=== PATIENT | male | born 1985 ===

== ENCOUNTER 2017-09-12 10:54 | Emergency (ER) | payer SELFPAY ==
--- NOTE | 2017-09-12 12:08 | UC ---
Throat Pain/Nasal Froy HPI - HPI Summary HPI Summary: This is Caroline sethi, documenting for attending Vincent Nieto M.D. Pt is a 32 y/o M who presents to ED c/o painful and swollen throat. Pt reports that his throat has been painful for 3 days, at its worst today. Pain has been intermittent since onset, present with PO intake and swallowing. On triage, pain is not present ranked 0/10. Notes slight rash which he suspects to be poison hazel on the right ankle. Reports that he has not felt ill while experiencing symptoms. Denies fever, abdominal pain. States that he has had what he suspects to be poison hazel on his lips for the last 5 days, which is now resolved, and that he is concerned the poison hazel is in his throat. Works outdoors. - History of Current Complaint Chief Complaint: UCRespiratory Stated Complaint: THROAT PAIN Time Seen by Provider: 09/12/17 12:02 Hx Obtained From: Patient Onset/Duration: Lasting Days - 3 days, Still Present, Worse Since - Today Pain Intensity: 0 Pain Scale Used: 0-10 Numeric Cough: None Associated Signs & Symptoms: Positive: Rash - Right ankle - Allergies/Home Medications Allergies/Adverse Reactions: Allergies Allergy/AdvReac Type Severity Reaction Status Date / Time No Known Allergies Allergy Verified 09/12/17 11:06 Home Medications: Home Medications diPHENhydraMINE PO* [Benadryl PO 25 MG TAB*] 50 mg PO ONCE 09/12/17 [History Confirmed 09/12/17] PMH/Surg Hx/FS Hx/Imm Hx - Additional Past Medical History Additional PMH: NEGATIVE PMHx: DM, HTN, CAD - Surgical History Surgical History: None - Family History Known Family History: Negative: Cardiac Disease, Hypertension, Diabetes - Social History Alcohol Use: None Substance Use Type: None Smoking Status (MU): Current Some Day Smoker Review of Systems Constitutional: Negative Skin: Rash - Right ankle Eyes: Negative ENT: Sore Throat, Other - Swollen throat Respiratory: Negative Cardiovascular: Negative Gastrointestinal: Negative Genitourinary: Negative Motor: Negative Neurovascular: Negative Musculoskeletal: Negative Neurological: Negative Psychological: Negative All Other Systems Reviewed And Are Negative: Yes - Comments Additional Review of Systems Comments: NEGATIVE: Fever, abdominal pain Physical Exam - Summary Physical Exam Summary: General: well-appearing, no pain distress Skin: warm, color reflects adequate perfusion, dry Head: normal Eyes: EOMI, NANETTE ENT: his lips have areas that are bright red, the posterior pharynx has some ulcerations, the oral pharynx is open, the uvula is midline, and there is no peritonsillar abscess Neck: supple, nontender Respiratory: CTA, breath sounds present Cardiovascular: RRR Musculoskeletal: normal, strength/ROM intact Neurological: sensory/motor intact, A&O x3 Psychological: affect/mood appropriate Triage Information Reviewed: Yes Vital Signs: Initial Vital Signs Temp 97.7 F 09/12/17 11:03 Pulse 86 09/12/17 11:03 Resp 12 09/12/17 11:03 BP 160/78 09/12/17 11:03 Pulse Ox 98 09/12/17 11:03 Vital Signs Reviewed: Yes Throat Pain/Nasal Course/Dx - Course Course Of Treatment: CLINICALLY APPEARS TO BE HAND, FOOT AND MOUTH DX. STREP NEGATIVE. F/U PMD; RECHECK SOONER IF WORSE. Assessment/Plan: Medications reviewed. Allergies noted. BP noted and advised to follow up with PCP. - Differential Dx/Diagnosis Provider Diagnoses: HAND FOOT AND MOUTH DISEASE. PHARYNGITIS Discharge - Sign-Out/Discharge Documenting (check all that apply): Patient Departure - Discharge - Discharge Plan Condition: Stable Disposition: HOME Prescriptions: Magic Mouth Was-EDGARD/MAAL/LIDO* 5 ml SWISH SWAL QID #120 ml predniSONE TAB* [Deltasone 20 MG TAB*] 40 mg PO DAILY #6 tab Patient Education Materials: Pharyngitis (ED), Hand, Foot, and Mouth Disease ( ED) Referrals: [facility] [place] [facility] [Outside] Additional Instructions: FOLLOW UP WITH YOUR DOCTOR. GET RECHECKED FOR ANY WORSENING OF YOUR CONDITION OR QUESTIONS OR CONCERNS. - Billing Disposition and Condition Condition: STABLE Disposition: Home
== END 2017-09-12 12:49 | disposition home or self-care (01) ==
LOC: UCEAST 10:54
DX: B08.4 Enteroviral vesicular stomatitis with exanthem (principal); J02.9 Acute pharyngitis, unspecified; R22.1 Localized swelling, mass and lump, neck; F17.200 Nicotine dependence, unspecified, uncomplicated
CPT/HCPCS: 87651; 99212; G0463